=== PATIENT | female | born 1980 ===

== ENCOUNTER 2017-01-15 15:55 | Emergency (ER) | payer BC, OTHER ==
[~2017-01-15] VITALS: Ht 175.3 cm; Wt 90.7 kg
[2017-01-16] MEDS ORDERED: ASPIRIN81 MG PO (05:35)
[2017-01-16] MEDS ORDERED: ZYRTEC10 M4 PO (05:36)
[2017-01-16] MEDS ORDERED: FLONASE16 GM NASBOTH (05:37)
[2017-01-16] MEDS ORDERED: PRENATAL PLUS I1 TAB PO (05:37)
== END 2017-01-15 20:05 | disposition short-term general hospital (02) ==
LOC: ER 15:55
DX: O9A.211 Injury, poisoning and certain other consequences of external causes complicating pregnancy, first trimester (principal); S70.12XA Contusion of left thigh, initial encounter; V89.2XXA Person injured in unspecified motor-vehicle accident, traffic, initial encounter; Z79.01 Long term (current) use of anticoagulants; Z79.899 Other long term (current) drug therapy; Z88.2 Allergy status to sulfonamides; Z88.8 Allergy status to other drugs, medicaments and biological substances; Z3A.33 33 weeks gestation of pregnancy